=== PATIENT | male | born 2000 | race Asian ===

== ENCOUNTER 2019-11-19 16:37 | Emergency (ER) | payer OTHER ==
[~2019-11-19] VITALS: Ht 175.3 cm; Wt 72.7 kg
[2019-11-19 16:43] VITALS: BP 115/48
== END 2019-11-19 18:05 | disposition home or self-care (01) ==
LOC: EMS 16:37
DX: U07.1 COVID-19 (principal); F17.210 Nicotine dependence, cigarettes, uncomplicated